=== PATIENT | male | born 1985 | race Hispanic/Latino ===

== ENCOUNTER 2024-06-19 19:05 | Observation (INO) | payer BC ==
[2024-06-19] MEDS ORDERED: ONDANSETRON 4 MG/2 ML VIAL IV PRN (20:24)
[2024-06-19] MEDS ORDERED: ACETAMINOPHEN 325 MG TABLET PO PRN (20:24)
[2024-06-19] MEDS ORDERED: MORPHINE 2 MG/ML SYR IV PRN (20:30)
--- NOTE | 2024-06-19 20:34 | P.HP ---
Certification for Inpatient Patient admitted to: Observation With expected LOS: <2 Midnights Practitioner: I am a practitioner with admitting privileges, knowledge of patient current condition, hospital course, and medical plan of care. Services: Services provided to patient in accordance with Admission requirements found in Title 42 Section 412.3 of the Code of Federal Regulations Patient History Date of Service: 06/19/24 Reason for admission: Abdominal Pain History of Present Illness: 38 yo male with no significant past medical history transferred from ER where he presented with upper respiratory tract symptoms and cough initially. He developed severe intractable flank pain on the right flank after coughing and sneezing and was seen in the ER again. He had a CT's which were within normal limits. He does not have any pain while resting other than when he coughs or sneezes and he heard a pop. Pain is intermittent and sharp, 10 out of 10 in severity pain is present. Denies any dysuria. Denies nausea vomiting or diarrhea. Patient had just had a bowel movement today. Last bowel movement was yesterday Patient was assessed in the ER and was admitted for further management of intractable back pain. Allergies Sulfa (Sulfonamide Antibiotics) Allergy (Verified 06/19/24 20:14) Anaphylaxis - Past Medical/Surgical History Past Surgical History: Reviewed- Non-Contributory Review of Systems 10-point ROS is otherwise unremarkable Other: Constitutional: Reports: generalized weakness. Skin: Denies: rash. Allergy/Immun: Denies: rhinorrhea, sneezing. Eyes: Denies: visual loss/blurred. ENT: Denies: earache, nasal congestion. Respiratory: Denies: non productive cough. Cardiovascular: Denies: chest pain, palpitations. GI: Denies: diarrhea, nausea. : Denies: dysuria. Musculoskeletal: Reports: arthritis. Denies: extremity pain. Heme: Denies: bleeding. Endocrine: Denies: polydipsia. Neuro: Reports: dizziness, gait problem, lightheaded, spinning sensation. Psych: Reports: anxiety. All systems rev & neg: except as noted Physical Examination - Vital Signs Temperature: 97.8 F Blood Pressure: 128/70 Pulse: 70 Respirations: 18 Pulse Ox (%): 94 - Physical Exam General: Alert, In no apparent distress, Oriented x3 HEENT: Atraumatic, Normocephalic Neck: Supple Respiratory: Clear to auscultation bilaterally, Normal air movement Cardiovascular: Regular rate/rhythm, Normal S1 S2 Capillary refill: <2 Seconds Gastrointestinal: Soft and benign, W/out hepatosplenomegaly Musculoskeletal: No clubbing Integumentary: No rashes Neurological: Normal gait, Normal speech, Normal strength at 5/5 x4 extr, Cranial nerves 3-12 intact Lymphatics: No axilla or inguinal lymphadenopathy Assessment and Plan - Plan Intractable back pain Monitor closely under telemetry Pain control CT done outside was negative for any acute changes Monitor CBC and CMP Surgical consult Will treat cough and allergy medication GI/DVT prophylaxis Advanced directive full code Discharge Plan: Home Plan to discharge in: 48 Hours - Advance Directives Does patient have a Living Will: No Does patient have a Durable POA for Healthcare: No - Code Status/Comfort Care Code Status: Full Code Time Spent Managing Pts Care (In Minutes): 48
[2024-06-19] MEDS: HYDROCODONE/APAP 5/325 MG TAB PO PRN (21:24)
[2024-06-19 21:41] LABS: Absolute Lymphocytes (CBC) 1.2 K/uL (0.7-4.9); Absolute Monocytes 0.4 K/uL (0.1-1.3); Absolute Neutrophil 5.8 K/uL (1.8-8.0); Basophils % 0.4 % (0-1.3); Eosinophils % 0.1 % (0-4.4); Hematocrit 42.3 % (39.6-49.0); Hemoglobin 14.4 g/dL (13.6-17.9); Lymphocytes % 16.1 % (15.3-44.8); MCH 30.8 pg (27.0-35.0); MCHC 34.2 g/dL (32.0-36.0); MCV 90.1 fL (80-100); MPV 8.9 fL (7.6-11.3); Monocytes % 4.8 % (3.3-12.3); Neutrophils % 78.6 % (41.7-73.7); Nucleated RBC Absolute Count 0.1 (0-0); Nucleated Red Blood Cells % 0.7 % (0-0); Platelets 232 thou/uL (152-406); RBC Red Blood Cell Count 4.69 M/uL (4.33-5.43); Red Cell Distribution Width 13.7 % (12.1-15.2)
[2024-06-19 22:00] LABS: Albumin 4.2 g/dL (3.4-5.0); Albumin/Globulin Ratio 1.2 (1.1-1.8); Anion Gap 9.3 mEq/L (5.0-15.0); Bilirubin Total 0.3 mg/dL (0.2-1.0); Globulin 3.5 g/dL (2.3-3.5); Potassium 4.3 mEq/L (3.5-5.1); Protein, Total 7.7 g/dL (6.4-8.2); Troponin High Sensitivity 3.6 pg/mL (<58.9)
[2024-06-19] MEDS: NA CHLORIDE 0.9% 1,000 ML IV SCH (22:06)
[2024-06-19 22:17] VITALS: BMI 29.4
[2024-06-20] MEDS: GUAIFENESIN/CODEINE 5ML UCUP PO PRN (00:12)
[2024-06-20 05:31] LABS: Absolute Lymphocytes (CBC) 1.8 K/uL (0.7-4.9); Absolute Monocytes 1.3 K/uL (0.1-1.3); Absolute Neutrophil 7.2 K/uL (1.8-8.0); Basophils % 0.2 % (0-1.3); Eosinophils % 0.4 % (0-4.4); Hematocrit 41.1 % (39.6-49.0); Hemoglobin 14.1 g/dL (13.6-17.9); Lymphocytes % 17.1 % (15.3-44.8); MCH 30.9 pg (27.0-35.0); MCHC 34.3 g/dL (32.0-36.0); MCV 90.2 fL (80-100); MPV 9.1 fL (7.6-11.3); Monocytes % 12.6 % (3.3-12.3); Neutrophils % 69.7 % (41.7-73.7); Nucleated Red Blood Cells % 0.1 % (0-0); Platelets 236 thou/uL (152-406); RBC Red Blood Cell Count 4.56 M/uL (4.33-5.43); Red Cell Distribution Width 13.5 % (12.1-15.2)
[2024-06-20 05:43] LABS: ALT/SGPT 70 U/L (16-61); AST/SGOT 24 U/L (15-37); Albumin 3.9 g/dL (3.4-5.0); Albumin/Globulin Ratio 1.3 (1.1-1.8); Alkaline Phosphatase 94 U/L (45-117); Anion Gap 8.6 mEq/L (5.0-15.0); BUN Blood Urea Nitrogen 17 mg/dL (7-18); Bicarbonate 26 mEq/L (21-32); Bilirubin Total 0.2 mg/dL (0.2-1.0); Globulin 3.1 g/dL (2.3-3.5); Glomerular Filtration Rate 89 ml/min (=/>90); Glucose Level 141 mg/dL (74-106); Potassium 4.6 mEq/L (3.5-5.1); Sodium Level 138 mEq/L (136-145)
[2024-06-20 05:53] LABS: Troponin High Sensitivity < 3.0 pg/mL (<58.9)
[2024-06-20] MEDS: FLU (Fluarix Triv) TS24-25(6MOS UP)/PF 45 MCG/0.5 ML Syringe IM ONE (07:15)
[2024-06-20] MEDS: ENOXAPARIN 40 MG/0.4 ML SQ SCH (08:21)
[2024-06-20 11:18] LABS: Specific Gravity 1.011 (1.005-1.030); Urine Bilirubin NEGATIVE (Negative); Urine Blood Negative (Negative); Urine Clarity Clear (Clear); Urine Color Colorless (Yellow); Urine Glucose NEGATIVE (Negative); Urine Ketones NEGATIVE (Negative); Urine Microscopic Reflex YN NO UMIC; Urine Nitrite NEGATIVE (Negative); Urine Protein NEGATIVE (Negative); Urine Urobilinogen Normal (Normal); Urine pH 6.5 (5.0-7.0)
--- NOTE | 2024-06-20 12:14 | P.DS ---
Admission Date: 06/19/24 Discharge Date: 06/20/24 Disposition: DC HOME/HOME HEALTH CARE Discharge Condition: GOOD Reason for Admission: Abdominal Pain Hospital Course: Discharge diagnosis: 1. Intractable right flank pain probably musculoskeletal secondary to cough -better with pain meds - CT done outside was negative for any acute changes - Surgical consult requested, dr. jenkins rec o/p f/u as CT neg 2 Cough: Ct chest neg, symptomatic RX Hospital course: 38-year-old patient who was seen in the freestanding ER for cough and upper airway infection, he was sent home with supportive care medications, on the way to home, he had a coughing spell and developed right flank pain, it was very severe so he was sent over to the ER for admission. Pain is located in the right flank area, no radiation, pain is getting better now with pain medications, it only happens with cough or sneeze. I reviewed with chest x-ray and CT scan chest, abdomen and pelvis results from the outside ER, chest x-ray was negative except colonic superimposed on the liver, CT cehst and abdomen which was done after the chest x-ray was negative for any significant abdominal findings, large and small intestines are normal, appendix normal, liver is norm al as well, biliary tree is normal as well. When I see the patient today he is doing well without any acute problems, he is comfortable, he feels ready to go home, otherwise no other acute issues going on, I discussed with Dr. Jenkins from surgical team, as there are no acute findings on CT abdomen, he is okay to discharge the patient and follow-up as an outpatient, So I am planning to discharge him to go home. Subjective: No chest pain or shortness of breath. No nausea or vomiting. No anterior abdominal pain. No obvious bleeding. Looks comfortable in the bed. Right flank pain is getting better. Objective: General appearance: Alert and comfortable CVS: Normal S1 and S2 Lungs: Clear to auscultation bilaterally Abdomen: Soft, bowel sounds present, no tenderness in the anterior abdomen, mild discomfort in the right flank which seems musculoskeletal Extremities: No lower extremity edema Vital Signs/Physical Exam: Temp Pulse Resp BP Pulse Ox 98.1 F 68 16 119/66 98 06/20/24 08:00 06/20/24 08:00 06/20/24 08:00 06/20/24 08:00 06/20/24 08:00 Laboratory Data at Discharge: WBC 10.40 thou/uL (4.3-10.9) 06/20/24 05:06 Hgb 14.1 g/dL (13.6-17.9) 06/20/24 05:06 Hct 41.1 % (39.6-49.0) 06/20/24 05:06 Plt Count 236 thou/uL (152-406) 06/20/24 05:06 Sodium 138 mEq/L (136-145) 06/20/24 05:06 Potassium 4.6 mEq/L (3.5-5.1) 06/20/24 05:06 BUN 17 mg/dL (7-18) 06/20/24 05:06 Creatinine 1.10 mg/dL (0.70-1.30) 06/20/24 05:06 Glucose 141 mg/dL (74-106) H 06/20/24 05:06 Total Bilirubin 0.2 mg/dL (0.2-1.0) 06/20/24 05:06 AST 24 U/L (15-37) 06/20/24 05:06 ALT 70 U/L (16-61) H 06/20/24 05:06 Alkaline Phosphatase 94 U/L (45-117) 06/20/24 05:06 Lipase 49 U/L (13-75) 06/19/24 21:31 Home Medications: Benzonatate [Tessalon Perle*] 100 mg PO TID PRN 06/19/24 Fexofenadine HCl [Brittney Allergy] 180 - 240 mg PO DAILY 06/19/24 Fluticasone Propionate 50 mcg JAY BID 06/19/24 Naproxen Sodium [Anaprox Ds] 550 mg PO BID PRN 06/19/24 Hydrocodone 5/APAP 325 [[place] 5/325*] 1 tab PO TID PRN #10 tab 06/20/24 New Medications: Hydrocodone 5/APAP 325 [[place] 5/325*] 1 tab PO TID PRN #10 tab PRN Reason: Pain Scale 5-7 (Moderate) Diet: Regular Activity: Ad anne-marie Followup: Percy Jenkins MD [ACTIVE - CAN ADMIT] - 1 Week (f/u in 1 week) Nolan Casanova MD [Primary Care Provider] - 1 Week (f/u in 5-7 days with CBC and CMP)
[2024-06-20 12:39] VITALS: BP 109/57; TEMP 98
== END 2024-06-20 12:43 | disposition home health service (06) ==
LOC: 2ND 19:05
PROVIDERS: ADMIT Family Medicine; ATTEND Hospitalist
DX: R10.9 Unspecified abdominal pain (principal); R05.9 Cough, unspecified; M54.9 Dorsalgia, unspecified
CPT/HCPCS: 85025 ×2; 36415 ×2; 81003; 84484 ×2; 83690; 80053 ×2; 97161; J1650; J7030 ×2; G0378